=== PATIENT | male | born 1945 | race Caucasian/White ===

== ENCOUNTER → 2023-10-07 06:31 | Day surgery (SDC) | payer MEDICARE, OTHER, SELFPAY | LOC: GI 06:31 | PROVIDERS: ATTENDING PHYSICIAN Internal Medicine Gastroenterology | DX: Z12.11 Encounter for screening for malignant neoplasm of colon (principal); K57.30 Diverticulosis of large intestine without perforation or abscess without bleeding; K64.8 Other hemorrhoids; D12.0 Benign neoplasm of cecum; Z86.010 Personal history of colon polyps | CPT/HCPCS: 45385; 45380; 88305 ==

== ENCOUNTER → 2023-10-11 07:30 | Outpatient (REF) | payer MEDICARE, OTHER, SELFPAY | LOC: RAD 07:30 | PROVIDERS: ATTENDING PHYSICIAN Internal Medicine Endocrinology, Diabetes & Metabolism; FAMILY PHYSICIAN Family Medicine | DX: E04.2 Nontoxic multinodular goiter (principal); E05.90 Thyrotoxicosis, unspecified without thyrotoxic crisis or storm | CPT/HCPCS: 70490 ==

== ENCOUNTER → 2024-11-05 07:15 | Outpatient (REF) | payer MEDICARE, OTHER, SELFPAY | LOC: RCS 07:15 | PROVIDERS: ATTENDING PHYSICIAN Internal Medicine Cardiovascular Disease; FAMILY PHYSICIAN Family Medicine; REFERRING PHYSICIAN Internal Medicine Endocrinology, Diabetes & Metabolism | DX: I25.5 Ischemic cardiomyopathy (principal); I70.0 Atherosclerosis of aorta; E04.2 Nontoxic multinodular goiter | CPT/HCPCS: 76536; 78452; 93017; 93306; A9500 ==